=== PATIENT | male | born 1945 | race Caucasian/White ===

== ENCOUNTER → 2020-04-21 13:29 | Outpatient (BNVA) | payer MEDICARE, OTHER, SELFPAY | PROVIDERS: Family Provider Electrodiagnostic Medicine; PCP Electrodiagnostic Medicine; Visit Provider Specialist | DX: G62.9 Polyneuropathy, unspecified (principal) | CPT/HCPCS: 99212 ==

== ENCOUNTER 2021-03-25 06:47 | Outpatient (CLI) | payer MEDICARE, OTHER, SELFPAY ==
--- NOTE | 2021-03-25 06:55 | US_ITS ---
WS: [id number] ULTRASOUND ABDOMEN LIMITED CLINICAL INFORMATION: IDIOPATHIC ACUTE PANCREATITIS WITH UNINFECTED NECROSIS COMPARISON: None. FINDINGS: Liver Size: Normal. Craniocaudal length: 15.2 cm. Echogenicity: Normal. Surface nodularity: None. Mass (size and location): None. Bile ducts Intrahepatic ducts: Normal. Common bile duct diameter: 0.4 cm. Gallbladder Cholelithiasis /sludge balls in the gallbladder. Gallbladder is partially contracted. Gallstones: Present Gallbladder sludge: Present Gallbladder wall thickening: None. Pericholecystic fluid: None. Sonographic Lim sign: Absent. Pancreas Not well seen Right kidney: Normal. Hydronephrosis: None. Size: 10.0 cm x 4.1 cm x 4.9 cm. Abdominal aorta and IVC Visualized portions are normal. Ascites: None. US/US abdomen limited [id number] IMPRESSION: 1. Pancreas not well seen. 2. Cholelithiasis/sludge balls in the gallbladder. Normal common bile duct. No pericholecystic fluid. 3. No hydronephrosis in right kidney.
== END 2021-03-25 06:48 | disposition home or self-care (01) ==
PROVIDERS: PCP Electrodiagnostic Medicine; Visit Provider Electrodiagnostic Medicine
DX: K85.01 Idiopathic acute pancreatitis with uninfected necrosis (principal); R94.4 Abnormal results of kidney function studies; D69.6 Thrombocytopenia, unspecified
CPT/HCPCS: 76705

== ENCOUNTER 2021-07-21 12:10 | Outpatient (CLI) | payer MEDICARE, OTHER, SELFPAY ==
[2021-07-21 12:35] VITALS: BP 131/77; PULSE 66; RESP 18; TEMP 36.7; O2SAT 98; BMI 25.8
--- NOTE | 2021-07-21 12:57 | PC.NURSE ---
All assessments and interventions by Johanna and Migel/documented by DAJA Becerra
[2021-07-21 12:59] VITALS: BP 119/76; PULSE 68; RESP 18; TEMP 36.4; O2SAT 98
[2021-07-21 14:02] VITALS: BP 121/77; PULSE 67; RESP 18; TEMP 36.1; O2SAT 99
== END 2021-07-21 12:11 | disposition home or self-care (01) ==
LOC: OPS 12:14
PROVIDERS: PCP Electrodiagnostic Medicine; Visit Provider Electrodiagnostic Medicine
DX: U07.1 COVID-19 (principal)
CPT/HCPCS: 96365

== ENCOUNTER 2023-07-09 11:10 | Emergency (ER) | payer MEDICARE, OTHER, SELFPAY ==
--- NOTE | 2023-07-09 11:14 | XRR_ITS ---
PROCEDURE INFORMATION: Exam: XR Chest Exam date and time: 07/09/2023 11:28 AM Age: 77 years old Clinical indication: Other: Epigastric pain; Additional info: Cp TECHNIQUE: Imaging protocol: Radiologic exam of the chest. Views: 1 view. COMPARISON: No relevant prior studies available. FINDINGS: Lungs: Mild subsegmental atelectasis versus scarring in the left lung base. No consolidation. Pleural spaces: No pleural effusion or pneumothorax. Heart/Mediastinum: Unremarkable. No cardiomegaly. Vasculature: Aortic arch atherosclerotic calcification. Bones/joints: Degenerative changes along the spine and acromioclavicular joints. XR/XR chest 1V portable [id number] IMPRESSION: No acute findings.
--- NOTE | 2023-07-09 11:15 | ECG_ITS ---
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 Measurements Intervals [place] Rate: 82 P: 46 ME: 115 QRS: 0 QRSD: 86 T: 75 QT: 374 QTc: 439 Interpretive Statements SINUS RHYTHM WITH SHORT ME INTERVAL LOW QRS VOLTAGE IN PRECORDIAL LEADS [QRS DEFLECTION < 1.0 mV IN CHEST LEADS] No previous ECG available for comparison Electronically Signed On 07-09-2023 12:03:51 PREFITTER by Rom Ames M.D. [id number]
[2023-07-09 11:20] VITALS: BP 142/79; PULSE 81; RESP 18; TEMP 36.7; O2SAT 100; BMI 26.6
[2023-07-09 11:49] LABS: Basophils % 0.4 %; Eosinophils # 0.1 10^3/uL (0.0-0.8); Eosinophils % 0.6 %; Hematocrit 37.5 % (37-53); Mean Corpuscular HGB Conc 33.3 g/dL (30-55); Mean Corpuscular Hemoglobin 30.6 pg (27-33); Mean Corpuscular Volume 91.7 fl (82-101); Mean Platelet Volume 9.8 fL (7.4-10.4); Monocytes # 0.5 10^3/uL (0.2-0.9); Monocytes % 5.4 %; Neutrophils # 5.92 10^3/uL (1.8-7.7); Neutrophils % 62.2 %; Nucleated Red Blood Cells % 0 %; Platelet Count 208 10^3/cmm (157-399); Red Blood Count 4.09 10^6/uL (3.85-5.65); Red Cell Distribution Width 13.2 % (12.1-15.1); White Blood Count 9.52 10^3/uL (3.29-11.43)
[2023-07-09 12:09] LABS: Alanine Aminotransferase 66 U/L (0-41); Albumin Level 4.6 g/dL (3.5-5.2); Alkaline Phosphatase 102 U/L (40-130); Anion Gap 20.3 (5-19); Aspartate Amino Transferase 137 U/L (0-40); Blood Urea Nitrogen 21 mg/dL (8-23); Calcium 9.7 mg/dL (8.5-10.5); Carbon Dioxide 21 mmol/L (22-29); Chloride 104 mmol/L (98-107); Glucose 156 mg/dL (65-115); Lipase 6 U/L (13-60); Osmolality Calculated 296 mOsm/kg (285-295); Potassium 5.3 mmol/L (3.5-5.1); Sodium 140 mmol/L (136-145); Total Bilirubin 0.5 mg/dL (0.15-1.2); Total Protein 7.6 g/dL (6.6-8.7)
[2023-07-09 12:15] LABS: Troponin(5th) Baseline 38 ng/L (0-15)
--- NOTE | 2023-07-09 13:22 | W.ED.ABDPA2 ---
HPI - Abdominal Pain General: Chief Complaint: Abdominal Pain Stated Complaint: diaphram pain, sob, weakness Time Seen by Provider: 07/09/23 13:21 Source: patient Mode of arrival: ambulatory History of Present Illness: 77-year-old male presents emergency complaining epigastric pain radiating to his chest. It is much better than it was earlier he took 9 Tums to resolve it. He has had this intermittently in the past he had a history of pancreatitis in the past as well he denies drinking recently. Has nauseous but not vomited. MD elicited complaint: abdominal pain Onset (ago): hour(s) Location: Epigastric Severity: moderate Quality: sharp Radiation: chest Exacerbating factors: nothing Relieving factors: nothing Associated Symptoms: Reports GI cramping and dyspepsia; Denies anorexia, belching, bloating, change in bowel habits, change in stool character, chills, coffee ground emesis, constipation, diarrhea, dysuria, excessive flatus, fever(s), heartburn, hematochezia, hematuria, hematemesis, fecal incontinence, loose stools, melena, nausea, poor appetite, syncope and vomiting Review of Systems Const: Denies: fever(s) or chills Card: Denies: syncope Resp: Denies: dyspnea GI: Reports: GI cramping; Denies: nausea, vomiting, hematemesis, coffee ground emesis, heartburn, diarrhea, constipation, bloating, belching, excessive flatus, fecal incontinence, change in bowel habits, change in stool character, hematochezia or melena : Denies: dysuria or hematuria Musc: Denies: neck pain or back pain Skin/Breast: Denies: rash PFSH ED PFSH: Family History Other Cancer Social History Smoking and tobacco/nicotine status: never used tobacco/nicotine Physical Exam Const: COMMON NORMALS: no acute distress GENERAL APPEARANCE: cooperative and comfortable ORIENTATION/CONSCIOUSNESS: Yes awake, Yes oriented to person, Yes oriented to place and Yes oriented to time HENMT: COMMON NORMALS: normocephalic, atraumatic and hearing grossly normal bilaterally HEAD & SCALP: normocephalic and atraumatic Resp: COMMON NORMALS: normal respiratory effort, No retractions, No use of accessory muscles and clear to auscultation bilaterally AUSCULTATION: clear to auscultation bilaterally Cardio: COMMON NORMALS: regular rate, regular rhythm and No murmurs present (Cardio) RATE: regular rate RHYTHM: regular rhythm GI: COMMON NORMALS: Soft to palpation and No hepatosplenomegaly present AUSCULTATION: Yes normoactive bowel sounds PALPATION: Yes Soft to palpation, No Tenderness to palpation present (GI), No Guarding due to palpation present (GI) and Yes No hepatosplenomegaly present Extremity: COMMON NORMALS: normal to inspection, capillary refill normal, no clubbing, cyanosis or edema, no calf tenderness and no pedal edema Neuro: SENSORIUM/ORIENTATION: Yes oriented to person, Yes oriented to place and Yes oriented to time Skin: COMMON NORMALS: no rashes or lesions noted GENERAL SKIN EXAM: no rashes or lesions noted Course Vital Signs: Vital signs: Vital Signs Temperature 98.1 F 07/09/23 11:20 Pulse Rate 81 07/09/23 11:20 Respiratory Rate 18 07/09/23 11:20 Blood Pressure 142/79 07/09/23 11:20 Pulse Oximetry 100 07/09/23 11:20 Oxygen Delivery Me thod Room Air 07/09/23 11:20 MDM - Abdominal Pain Medical Decision Making Symptoms improved prior to coming here with these several times that he took improved even more with the GI cocktail cardiac enzymes negative EKG did not show any acute ST changes we will discharge patient home on pantoprazole 40 mg daily Carafate for breakthrough symptoms set up for an outpatient Lexiscan sestamibi stress test Medical Records I reviewed the patient's medical records. Lab Data I reviewed the patient's lab results. 07/09/23 11:41 07/09/23 11:41 Labs/Radiology: Radiology Impressions Chest X-Ray 07/09/23 11:14 IMPRESSION: No acute findings. Laboratory Results WBC 9.52 10^3/uL (3.29-11.43) 07/09/23 11:41 RBC 4.09 10^6/uL (3.85-5.65) 07/09/23 11:41 Hgb 12.50 g/dL (11.27-16.99) 07/09/23 11:41 Hct 37.5 % (37-53) 07/09/23 11:41 MCV 91.7 fl (82-101) 07/09/23 11:41 MCH 30.6 pg (27-33) 07/09/23 11:41 MCHC 33.3 g/dL (30-55) 07/09/23 11:41 RDW 13.2 % (12.1-15.1) 07/09/23 11:41 Plt Count 208 10^3/cmm (157-399) 07/09/23 11:41 MPV 9.8 fL (7.4-10.4) 07/09/23 11:41 Neut % (Auto) 62.2 % 07/09/23 11:41 Lymph % (Auto) 31.0 % 07/09/23 11:41 Mclean % (Auto) 5.4 % 07/09/23 11:41 Eos % (Auto) 0.6 % 07/09/23 11:41 Baso % (Auto) 0.4 % 07/09/23 11:41 Neut # (Auto) 5.92 10^3/uL (1.8-7.7) 07/09/23 11:41 Lymph # (Auto) 3.0 10^3/uL (0.8-4.8) 07/09/23 11:41 Mclean # (Auto) 0.5 10^3/uL (0.2-0.9) 07/09/23 11:41 Eos # (Auto) 0.1 10^3/uL (0.0-0.8) 07/09/23 11:41 Baso # (Auto) 0.0 10^3/uL (0.0-0.1) 07/09/23 11:41 Nucleated RBC % (auto) 0 % 07/09/23 11:41 Nucleated RBCs # 0.0 /100WBC 07/09/23 11:41 Sodium 140 mmol/L (136-145) 07/09/23 11:41 Potassium 5.3 mmol/L (3.5-5.1) H 07/09/23 11:41 Chloride 104 mmol/L (98-107) 07/09/23 11:41 Carbon Dioxide 21 mmol/L (22-29) L 07/09/23 11:41 Anion Gap 20.3 (5-19) H 07/09/23 11:41 BUN 21 mg/dL (8-23) 07/09/23 11:41 Creatinine 1.4 mg/dL (0.7-1.2) H 07/09/23 11:41 GFR Calculation Not Reportable 07/09/23 11:41 Glucose 156 mg/dL (65-115) H 07/09/23 11:41 Calculated Osmolality 296 mOsm/kg (285-295) H 07/09/23 11:41 Calcium 9.7 mg/dL (8.5-10.5) 07/09/23 11:41 Total Bilirubin 0.5 mg/dL (0.15-1.2) 07/09/23 11:41 AST 137 U/L (0-40) H 07/09/23 11:41 ALT 66 U/L (0-41) H 07/09/23 11:41 Alkaline Phosphatase 102 U/L (40-130) 07/09/23 11:41 Troponin T Baseline 38 ng/L (0-15) H 07/09/23 11:41 Troponin T 120 Minute 38.14 ng/L (0-15) H 07/09/23 13:50 Delta Troponin T 0.14 ABS# (0-10) 07/09/23 13:50 Total Protein 7.6 g/dL (6.6-8.7) 07/09/23 11:41 Albumin 4.6 g/dL (3.5-5.2) 07/09/23 11:41 Globulin 3.0 g/dL (1.3-4.6) 07/09/23 11:41 Lipase 6 U/L (13-60) L 07/09/23 11:41 All radiology interpretation(s) finalized by discharge Discharge Plan Discharge Patient Disposition: Home Clinical Impression: Atypical chest pain, GERD (gastroesophageal reflux disease) Condition: Stable Prescriptions: New pantoprazole 40 mg tablet,delayed release (DR/EC) 40 mg PO DAILY Qty: 30 0RF Carafate 1 gram tablet 1 g PO Q6H PRN (Reason: dyspepsia) 28 Days Qty: 112 0RF No Action diphenhydramine HCl [Benadryl] 25 mg capsule 25 mg PO DAILY finasteride 5 mg tablet 5 mg PO DAILY lorazepam 0.5 mg tablet 0.5 mg PO BID PRN tamsulosin 0.4 mg capsule 0.4 mg PO DAILY prednisolone 5 mg tablet 5 mg PO DAILY gabapentin 300 mg capsule 300 mg PO DAILY Qty: 180 3RF Discharge Orders: Discharge ED (Routine); Ordered 07/09/23 Ordered By: Arjun Buckley Referrals: Travon Marin, [Primary Care Provider] - Discharge Diet: Usual diet Discharge Activity: Limit activity as instructed Patient Instructions: Opioid Safety, Pain Management Activity Restrictions/Additional Instructions: Thank you for choosing [facility] for your healthcare needs today. Please realize this is an emergency room and that we are providing you with a medical screening exam and this may not be complete and all inclusive of all the testing and or work up that you may need to determine your ailment or severity of your illness. It is very important that you follow up as instructed or that you return to the Emergency Department should you have concerns or if your condition changes or worsens in any way. You are seen today for epigastric pain radiating to the chest suspect this is due to GI source such as reflux. Recommend short pantoprazole 40 mg daily Carafate as needed for breakthrough symptoms. To further evaluate heart as a potential cause will set you up for an outpatient stress test. Coding Level of Care Code ED Build Technician for Cherri Stein
--- NOTE | 2023-07-09 13:23 | ECG_ITS ---
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 Measurements Intervals [place] Rate: 60 P: 44 AR: 167 QRS: 8 QRSD: 80 T: 54 QT: 404 QTc: 406 Interpretive Statements SINUS RHYTHM LOW QRS VOLTAGE IN PRECORDIAL LEADS [QRS DEFLECTION < 1.0 mV IN CHEST LEADS] Compared to ECG 07/09/2023 11:16:33 ST (T wave) deviation now present Myocardial infarct finding now present Short AR interval no longer present Electronically Signed On 07-09-2023 13:43:43 TOSSER by Deyanira Medrano M.D. [id number]
[2023-07-09 14:26] LABS: Troponin 5 2HR 38.14 ng/L (0-15)
[2023-07-09 14:27] LABS: Troponin 5 2HR Delta 0.14 ABS# (0-10)
[2023-07-09] MEDS: lidocaine 2% viscous 15 ML, aluminum-mag hydrox-simethicon 30 ML, sucralfate oral liq 1 GM PO (15:06)
== END 2023-07-09 15:39 | disposition home or self-care (01) ==
PROVIDERS: Emergency Medicine; Emergency Provider Family Medicine; PCP Electrodiagnostic Medicine
DX: R07.89 Other chest pain (principal); K21.9 Gastro-esophageal reflux disease without esophagitis
CPT/HCPCS: 36415; 71045; 80053; 83690; 84484; 85025; 93005; 99285

== ENCOUNTER → 2023-12-24 14:50 | Outpatient (BNVA) | payer MEDICARE, SELFPAY | PROVIDERS: PCP Electrodiagnostic Medicine; Visit Provider Podiatrist Foot & Ankle Surgery | DX: Q82.8 Other specified congenital malformations of skin; G62.9 Polyneuropathy, unspecified | CPT/HCPCS: 17110; 99203 ==

== ENCOUNTER 2024-02-01 01:30 | Emergency (ER) | payer MEDICARE, SELFPAY ==
[2024-02-01 01:45] VITALS: BP 145/81; PULSE 78; RESP 14; TEMP 36.7; O2SAT 99
--- NOTE | 2024-02-01 02:01 | ED_ITS ---
HPI - Abdominal Pain 2 General: Chief Complaint: Abdominal Pain Stated Complaint: Diah Time Seen by Provider: 02/01/24 01:57 History of Present Illness: 78-year-old man who presents emergency r oom with diarrhea. He said he has been having this for several days now. Apparently had had a ruptured gallbladder and is on 3 different oral antibiotics at home right now. He has to be on antibiotics for some time before they will remove his gallbladder he says. He says he has been having occasional vomiting but has had copious diarrhea and started feeling weak and was worried that he was dehydrated. Review of Systems 2 Narrative: Constitutional symptoms: Negative except as documented in HPI. Skin symptoms: Negative except as documented in HPI. Eye symptoms: Negative except as documented in HPI. ENMT symptoms: Negative except as documented in HPI. Respiratory symptoms: Negative except as documented in HPI. Cardiovascular symptoms: Negative except as documented in HPI. Gastrointestinal symptoms: Negative except as documented in HPI. Genitourinary symptoms: Negative except as documented in HPI. Musculoskeletal symptoms: Negative except as documented in HPI. Neurologic symptoms: Negative except as documented in HPI. Psychiatric symptoms: Negative except as documented in HPI. Endocrine symptoms: Negative except as documented in HPI. PFSH ED 2 PFSH: Family History Other Cancer Social History Smoking and tobacco/nicotine status: never used tobacco/nicotine Physical Exam 2 Narrative: EXAM NARRATIVE: General: Alert, no acute distress. Skin: Warm, dry. Head: Normocephalic, atraumatic. Neck: Supple, trachea midline. Eye: Extraocular movements are intact. Ears, nose, mouth and throat: Tacky oral mucosa Cardiovascular: Regular, Normal peripheral perfusion. Respiratory: Lungs are clear to auscultation, respirations are non-labored, breath sounds are equal, Symmetrical chest wall expansion. Gastrointestinal: Soft, Nontender, Non distended, Normal bowel sounds. Musculoskeletal: Normal ROM, no deformity. Neurological: Alert and oriented, No focal neurological deficit observed. Psychiatric: Cooperative, appropriate mood & affect. Course 2 Vital Signs: Vital signs: Vital Signs Temperature 98.1 F 02/01/24 01:45 Pulse Rate 78 02/01/24 02:30 Respiratory Rate 16 02/01/24 02:30 Blood Pressure 138/80 02/01/24 02:30 Pulse Oximetry 100 02/01/24 02:30 Oxygen Delivery Me thod Room Air 02/01/24 02:30 MDM - Abdominal Pain Medical Decision Making Medical decision making: Differential diagnosis including but not limited to and based on the above HPI, review of systems and physical exam: With gallbladder issues and on multiple antibiotics patient likely has diarrhea secondary to this. Will be concern for renal failure and dehydration. So BMP and CBC were ordered. Also he had a high white count might worry about C. difficile. Orders placed to evaluate differential diagnosis based on the above differential, HPI and physical exam Lab Review: Laboratory results were reviewed and interpreted by myself the emergency room physician. Lab work is fairly unremarkable. White count is 8.5. His sodium is a bit low at 128 which would indicate some dehydration also BUN and creatinine are 18 and 1.3 which supports this. 2 L of fluid are being given I reviewed the patient's medical record. Reexamination: Patient remained stable. No altered mental status. No increased work of breathing. No focal motor deficits. Assessment and plan: Diarrhea Dehydration -IV Zofran and 2 L normal saline bolus. - Discharged home - Discussed plan with patient. Answered any questions. - Evaluation and treatment of this problem were appropriate in the emergency setting. Lab Data 02/01/24 02:00 02/01/24 02:00 Labs/Radiology: Laboratory Results WBC 8.50 10^3/uL (3.29-11.43) 02/01/24 02:00 RBC 3.72 10^6/uL (3.85-5.65) L 02/01/24 02:00 Hgb 11.00 g/dL (11.27-16.99) L 02/01/24 02:00 Hct 32.7 % (37-53) L 02/01/24 02:00 MCV 87.9 fl (82-101) 02/01/24 02:00 MCH 29.6 pg (27-33) 02/01/24 02:00 MCHC 33.6 g/dL (30-55) 02/01/24 02:00 RDW 14.3 % (12.1-15.1) 02/01/24 02:00 Plt Count 304 10^3/cmm (157-399) 02/01/24 02:00 MPV 9.3 fL (7.4-10.4) 02/01/24 02:00 Neut % (Auto) 58.5 % 02/01/24 02:00 Lymph % (Auto) 30.6 % 02/01/24 02:00 [place] % (Auto) 8.2 % 02/01/24 02:00 Eos % (Auto) 1.8 % 02/01/24 02:00 Baso % (Auto) 0.5 % 02/01/24 02:00 Neut # (Auto) 4.98 10^3/uL (1.8-7.7) 02/01/24 02:00 Lymph # (Auto) 2.6 10^3/uL (0.8-4.8) 02/01/24 02:00 [place] # (Auto) 0.7 10^3/uL (0.2-0.9) 02/01/24 02:00 Eos # (Auto) 0.2 10^3/uL (0.0-0.8) 02/01/24 02:00 Baso # (Auto) 0.0 10^3/uL (0.0-0.1) 02/01/24 02:00 Nucleated RBC % (auto) 0 % 02/01/24 02:00 Nucleated RBCs # 0.0 /100WBC 02/01/24 02:00 Sodium 128 mmol/L (136-145) L 02/01/24 02:00 Potassium 4.4 mmol/L (3.5-5.1) 02/01/24 02:00 Chloride 94 mmol/L (98-107) L 02/01/24 02:00 Carbon Dioxide 20 mmol/L (22-29) L 02/01/24 02:00 Anion Gap 18.4 (5-19) 02/01/24 02:00 BUN 18 mg/dL (8-23) 02/01/24 02:00 Creatinine 1.3 mg/dL (0.7-1.2) H 02/01/24 02:00 GFR Calculation Not Reportable 02/01/24 02:00 Glucose 108 mg/dL (65-115) 02/01/24 02:00 Calculated Osmolality 268 mOsm/kg (285-295) L 02/01/24 02:00 Lactic Acid 1.3 mmol/L (0.5-2.2) 02/01/24 02:00 Calcium 8.5 mg/dL (8.5-10.5) 02/01/24 02:00 Total Bilirubin 0.6 mg/dL (0.15-1.2) 02/01/24 02:00 AST 24 U/L (0-40) 02/01/24 02:00 ALT 18 U/L (0-41) 02/01/24 02:00 Alkaline Phosphatase 91 U/L (40-130) 02/01/24 02:00 C-Reactive Protein 5.8 mg/L (0.0-4.9) H 02/01/24 02:00 Total Protein 7.1 g/dL (6.6-8.7) 02/01/24 02:00 Albumin 3.8 g/dL (3.5-5.2) 02/01/24 02:00 Globulin 3.3 g/dL (1.3-4.6) 02/01/24 02:00 Lipase 5 U/L (13-60) L 02/01/24 02:00 No radiology studies performed this visit Discharge Plan Discharge Patient Disposition: Home Clinical Impression: Dehydration Diarrhea Qualifiers: Diarrhea type: unspecified type Qualified Code(s): R19.7 - Diarrhea, unspecified Condition: Stable Prescriptions: New ondansetron 8 mg tablet,disintegrating 8 mg PO .q6 PRN (Reason: nausea and vomiting) Qty: 14 0RF No Action diphenhydramine HCl [Benadryl] 25 mg capsule 25 mg PO DAILY finasteride 5 mg tablet 5 mg PO DAILY lorazepam 0.5 mg tablet 0.5 mg PO BID PRN tamsulosin 0.4 mg capsule 0.4 mg PO DAILY prednisolone 5 mg tablet 5 mg PO DAILY gabapentin 300 mg capsule 300 mg PO DAILY Qty: 180 3RF pantoprazole 40 mg tablet,delayed release (DR/EC) 40 mg PO DAILY Qty: 30 0RF Discharge Orders: Discharge ED (Routine); Ordered 02/01/24 Ordered By: Misti Reza Referrals: Travon Marin DO [Primary Care Provider] - 4-7 days Discharge Diet: Usual diet Discharge Activity: Resume usual activity Patient Instructions: Acute Diarrhea (ED) Activity Restrictions/Additional Instructions: Thank you for choosing [facility] for your healthcare needs today. Please realize this is an emergency room and that we are providing you with a medical screening exam and this may not be complete and all inclusive of all the testing and or work up that you may need to determine your ailment or severity of your illness. You have been screened and evaluated and felt safe for discharge. Health conditions do change or evolve sometimes and as such it is important that you follow up with your Primary Doctor to be re checked, 3-5 days is a general good time frame for follow up. You are always welcome to return to the ED for re assessment if your symptoms are worsening or you have new concerns Coding Level of Care Code ED Hide Puller for Cherri Stein
[2024-02-01 02:08] LABS: Basophils % 0.5 %; Eosinophils # 0.2 10^3/uL (0.0-0.8); Eosinophils % 1.8 %; Hematocrit 32.7 % (37-53); Lymphocytes # 2.6 10^3/uL (0.8-4.8); Lymphocytes % 30.6 %; Mean Corpuscular HGB Conc 33.6 g/dL (30-55); Mean Corpuscular Hemoglobin 29.6 pg (27-33); Mean Corpuscular Volume 87.9 fl (82-101); Mean Platelet Volume 9.3 fL (7.4-10.4); Monocytes # 0.7 10^3/uL (0.2-0.9); Monocytes % 8.2 %; Neutrophils # 4.98 10^3/uL (1.8-7.7); Neutrophils % 58.5 %; Nucleated Red Blood Cells % 0 %; Platelet Count 304 10^3/cmm (157-399); Red Blood Count 3.72 10^6/uL (3.85-5.65); Red Cell Distribution Width 14.3 % (12.1-15.1)
[2024-02-01] MEDS: sodium chloride 0.9% 1,000 ML 999 ML IV ×2 (02:13→02:54)
[2024-02-01 02:28] LABS: Alanine Aminotransferase 18 U/L (0-41); Albumin Level 3.8 g/dL (3.5-5.2); Alkaline Phosphatase 91 U/L (40-130); Anion Gap 18.4 (5-19); Aspartate Amino Transferase 24 U/L (0-40); Blood Urea Nitrogen 18 mg/dL (8-23); C Reactive Protein 5.8 mg/L (0.0-4.9); Calcium 8.5 mg/dL (8.5-10.5); Carbon Dioxide 20 mmol/L (22-29); Chloride 94 mmol/L (98-107); Globulin 3.3 g/dL (1.3-4.6); Glucose 108 mg/dL (65-115); Lipase 5 U/L (13-60); Osmolality Calculated 268 mOsm/kg (285-295); Potassium 4.4 mmol/L (3.5-5.1); Sodium 128 mmol/L (136-145); Total Bilirubin 0.6 mg/dL (0.15-1.2); Total Protein 7.1 g/dL (6.6-8.7)
[2024-02-01 02:30] VITALS: BP 138/80; PULSE 78; RESP 16; O2SAT 100
[2024-02-01 02:31] LABS: Creatinine Clr Calc Pharmacy 51.9562; Lactic Sepsis W/Reflex 1.3 mmol/L (0.5-2.2)
--- NOTE | 2024-02-01 02:51 | XRR_ITS ---
PROCEDURE INFORMATION: Exam: XR Chest Exam date and time: 02/01/2024 2:59 AM Age: 78 years old Clinical indication: Angina; Additional info: Chest pain TECHNIQUE: Imaging protocol: Radiologic exam of the chest. Views: 1 view. COMPARISON: CR XR chest 1V portable [id number] 07/09/2023 11:28 AM FINDINGS: Lungs: Unremarkable. No consolidation. Pleural spaces: Unremarkable. No pleural effusion. No pneumothorax. Heart/Mediastinum: Unremarkable. No cardiomegaly. Bones/joints: Unremarkable. XR/XR chest 1V portable [id number] IMPRESSION: No acute cardiopulmonary findings.
[2024-02-01 03:32] VITALS: BP 133/73; PULSE 77; RESP 17; O2SAT 100
== END 2024-02-01 03:33 | disposition home or self-care (01) ==
PROVIDERS: Emergency Provider Emergency Medicine; PCP Electrodiagnostic Medicine
DX: R19.7 Diarrhea, unspecified (principal); E86.0 Dehydration
CPT/HCPCS: 36415; 71045; 80053; 83605; 83690; 85025; 86140; 96360; 99284; J7030

== ENCOUNTER 2024-08-20 14:09 | Outpatient (CLI) | payer MEDICARE, SELFPAY ==
--- NOTE | 2024-08-20 14:16 | CT_ITS ---
WS: [id number] CT scan of the abdomen and pelvis without Oral and IV contrast. Additional two-dimensional coronal an d sagittal reconstruction was performed. 08/20/2024 Clinical Data: ABDOMINAL PAIN Comparison: None. DLP: 369.[address] scans at [facility] use at least one of these dose optimization techniques: automated e xposure control; mA and/or kV adjustment per patient size (includes targeted exams where dose is matc hed to clinical indication); or iterative reconstruction. Findings: The lower lungs show no nodules, masses or effusions. The liver, spleen, adrenal glands and pancreas are normal. There are cholecystectomy clips in the gal lbladder fossa. The kidneys show no cyst or masses. There is no hydronephrosis or hydroureter. No renal or ureteral calculi are seen. The abdominal aorta is normal in size with calcification in the wall.. No appendicitis or diverticulitis is seen. The stomach, small bowel and colon show no acute abnormali ties. There are numerous colonic diverticula. The bladder is unremarkable. The prostate is enlarged. No inguinal hernia is seen. The bones of the lower thorax, lumbar spine, pelvis, and hips are normal. CT/CT abdomen pelvis con [id number] Impression: Negative CT scan of the abdomen and pelvis.
== END 2024-08-20 14:10 | disposition home or self-care (01) ==
LOC: RAD 14:11
PROVIDERS: PCP Electrodiagnostic Medicine; Visit Provider Electrodiagnostic Medicine
DX: K57.90 Diverticulosis of intestine, part unspecified, without perforation or abscess without bleeding (principal); N40.0 Benign prostatic hyperplasia without lower urinary tract symptoms; R10.9 Unspecified abdominal pain; Z90.49 Acquired absence of other specified parts of digestive tract
CPT/HCPCS: 74176

== ENCOUNTER 2024-11-28 13:56 | Emergency (ER) | payer MEDICARE, SELFPAY ==
[2024-11-28 14:17] VITALS: BP 131/75; PULSE 76; RESP 18; TEMP 36.6; O2SAT 100; BMI 26.6
--- NOTE | 2024-11-28 14:57 | W.ED.ABDPA2 ---
HPI - Abdominal Pain General: Chief Complaint: Abdominal Pain Stated Complaint: low abd pain Time Seen by Provider: 11/28/24 14:53 History of Present Illness: 78-year-old male presents to the emergency room with complaints of abdominal pain. Patient states he has had longstanding difficulty with his pancreas this pain began in September over the last week it has gotten worse. In April of last year he had a cholecystectomy complicated by infection. He denies any medic easy melena hematemesis coffee-ground emesis no fever no vomiting or diarrhea he has been very nauseous severe abdominal pain radiating into his back. Associated Symptoms: Reports nausea; Denies chills, constipation, diarrhea, dysuria, fever(s) and vomiting Related Data Home Medications ?Medication ?Instructions ?Recorded ?Confirmed diphenhydramine HCl 25 mg capsule 25 mg PO DAILY 04/21/20 12/24/23 (Benadryl) finasteride 5 mg tablet 5 mg PO DAILY 04/21/20 12/24/23 lorazepam 0.5 mg tablet 0.5 mg PO BID PRN 04/21/20 12/24/23 prednisolone 5 mg tablet 5 mg PO DAILY 04/21/20 12/24/23 tamsulosin 0.4 mg capsule 0.4 mg PO DAILY 04/21/20 12/24/23 Previous Rx's ?Medication ?Instructions ?Recorded gabapentin 300 mg capsule 300 mg PO DAILY #180 caps 04/21/20 pantoprazole 40 mg tablet,delayed 40 mg PO DAILY #30 tabs 07/09/23 release ondansetron 8 mg disintegrating 8 mg PO .q6 PRN nausea and 02/01/24 tablet vomiting #14 tabs Allergies Allergy/AdvReac Type Severity Reaction Status Date / Time No Known Allergies Allergy Verified 11/28/24 14:24 Review of Systems Const: Denies: fever(s) or chills Card: Denies: chest pain Resp: Denies: dyspnea GI: Reports: abdominal pain and nausea; Denies: vomiting, diarrhea or constipation : Denies: dysuria, urinary frequency or urinary urgency Musc: Denies: neck pain or back pain Skin/Breast: Denies: rash PFSH ED PFSH: Family History Other Cancer Social History (Reviewed 03/28/25 @ 15:08 by JOYCE Palacios Smoking and tobacco/nicotine status: never used tobacco/nicotine Physical Exam Const: GENERAL APPEARANCE: cooperative ORIENTATION/CONSCIOUSNESS: Yes awake, Yes oriented to person, Yes oriented to place and Yes oriented to time HENMT: COMMON NORMALS: normocephalic, atraumatic and hearing grossly normal bilaterally HEAD & SCALP: normocephalic and atraumatic Resp: COMMON NORMALS: normal respiratory effort, No retractions, No use of accessory muscles and clear to auscultation bilaterally AUSCULTATION: clear to auscultation bilaterally Cardio: COMMON NORMALS: regular rate, regular rhythm and No murmurs present (Cardio) RATE: regular rate RHYTHM: regular rhythm GI: COMMON NORMALS: Soft to palpation and No hepatosplenomegaly present AUSCULTATION: Yes normoactive bowel sounds PALPATION: Yes Soft to palpation, No Tenderness to palpation present (GI), No Guarding due to palpation present (GI) and Yes No hepatosplenomegaly present Extremity: COMMON NORMALS: normal to inspection, capillary refill normal, no clubbing, cyanosis or edema, no calf tenderness and no pedal edema Neuro: SENSORIUM/ORIENTATION: Yes oriented to person, Yes oriented to place and Yes oriented to time Skin: COMMON NORMALS: no rashes or lesions noted GENERAL SKIN EXAM: no rashes or lesions noted Course Vital Signs: Vital signs: Vital Signs Temperature 97.9 F 11/28/24 14:17 Pulse Rate 67 11/28/24 16:58 Respiratory Rate 18 11/28/24 14:17 Blood Pressure 137/77 11/28/24 16:58 Pulse Oximetry 97 11/28/24 16:58 Oxygen Delivery Me thod Room Air 11/28/24 16:30 MDM - Abdominal Pain Medical Decision Making No significant finding on exam noted on CT. Patient has been taking omeprazole as needed increase to twice daily for 10 days then daily Immucell Carafate or Tums in between follow-up with primary care. Lipase normal CT did not show any signs of abnormal swelling or inflammation around the pancreas Lab Data 11/28/24 15:18 11/28/24 15:18 Labs/Radiology: Radiology Impressions Abdomen/Pelvis CT 11/28/24 15:06 IMPRESSION: 1. No acute findings. 2. Prostate enlargement with chronic bladder wall thickening 3. Colonic diverticulosis Laboratory Results WBC 7.02 10^3/uL (3.29-11.43) 11/28/24 15:18 RBC 3.80 10^6/uL (3.85-5.65) L 11/28/24 15:18 Hgb 11.40 g/dL (11.27-16.99) 11/28/24 15:18 Hct 34.6 % (37-53) L 11/28/24 15:18 MCV 91.1 fl (82-101) 11/28/24 15:18 MCH 30.0 pg (27-33) 11/28/24 15:18 MCHC 32.9 g/dL (30-55) 11/28/24 15:18 RDW 13.2 % (12.1-15.1) 11/28/24 15:18 Plt Count 258 10^3/cmm (157-399) 11/28/24 15:18 MPV 9.5 fL (7.4-10.4) 11/28/24 15:18 Neut % (Auto) 40.5 % 11/28/24 15:18 Lymph % (Auto) 39.9 % 11/28/24 15:18 [place] % (Auto) 3.8 % 11/28/24 15:18 Eos % (Auto) 15.2 % 11/28/24 15:18 Baso % (Auto) 0.3 % 11/28/24 15:18 Neut # (Auto) 2.84 10^3/uL (1.8-7.7) 11/28/24 15:18 Lymph # (Auto) 2.8 10^3/uL (0.8-4.8) 11/28/24 15:18 [place] # (Auto) 0.3 10^3/uL (0.2-0.9) 11/28/24 15:18 Eos # (Auto) 1.1 10^3/uL (0.0-0.8) H 11/28/24 15:18 Baso # (Auto) 0.0 10^3/uL (0.0-0.1) 11/28/24 15:18 Nucleated RBC % (auto) 0 % 11/28/24 15:18 Nucleated RBCs # 0.0 /100WBC 11/28/24 15:18 Sodium 129 mmol/L (136-145) L 11/28/24 15:18 Potassium 4.4 mmol/L (3.5-5.1) 11/28/24 15:18 Chloride 99 mmol/L (98-107) 11/28/24 15:18 Carbon Dioxide 19 mmol/L (22-29) L 11/28/24 15:18 Anion Gap 15.4 (5-19) 11/28/24 15:18 BUN 16 mg/dL (8-23) 11/28/24 15:18 Creatinine 1.5 mg/dL (0.7-1.2) H 11/28/24 15:18 GFR Calculation Not Reportable 11/28/24 15:18 Glucose 89 mg/dL (65-115) 11/28/24 15:18 Calculated Osmolality 269 mOsm/kg (285-295) L 11/28/24 15:18 Calcium 8.1 mg/dL (8.5-10.5) L 11/28/24 15:18 Total Bilirubin 0.3 mg/dL (0.15-1.2) 11/28/24 15:18 AST 14 U/L (0-40) 11/28/24 15:18 ALT 11 U/L (0-41) 11/28/24 15:18 Alkaline Phosphatase 146 U/L (40-130) H 11/28/24 15:18 Total Protein 6.5 g/dL (6.6-8.7) L 11/28/24 15:18 Albumin 3.5 g/dL (3.5-5.2) 11/28/24 15:18 Globulin 3.0 g/dL (1.3-4.6) 11/28/24 15:18 Lipase 4 U/L (13-60) L 11/28/24 15:18 Urine Color Yellow (Yellow) 11/28/24 16:00 Urine Appearance Clear (CLEAR) 11/28/24 16:00 Urine pH 5 (5-7) 11/28/24 16:00 Ur Specific [place] 1.010 (1.005-1.030) 11/28/24 16:00 Urine Protein Neg (Negative) 11/28/24 16:00 Urine Glucose (UA) Norm (Normal) 11/28/24 16:00 Urine Ketones Negative (Negative) 11/28/24 16:00 Urine Blood Neg (Negative) 11/28/24 16:00 Urine Nitrate Negative (Negative) 11/28/24 16:00 Urine Bilirubin Neg (Negative) 11/28/24 16:00 Urine Urobilinogen Neg mg/dL (Negative) 11/28/24 16:00 Ur Leukocyte Esterase Negative (Negative) 11/28/24 16:00 Urine RBC 0-2 /hpf (0-2) 11/28/24 16:00 Urine WBC 0-5 /hpf (0-5) 11/28/24 16:00 Ur Squamous Epith Cells 0-5 /hpf (0-5) 11/28/24 16:00 Amorphous Sediment Not Reportable 11/28/24 16:00 Urine Bacteria None seen /hpf (NONE) 11/28/24 16:00 Hyaline Casts 0-4 /lpf H 11/28/24 16:00 All radiology interpretation(s) finalized by discharge Discharge Plan Discharge Patient Disposition: Home Clinical Impression: Gastroesophageal reflux disease Condition: Stable Prescriptions: No Action diphenhydramine HCl [Benadryl] 25 mg capsule 25 mg PO DAILY finasteride 5 mg tablet 5 mg PO DAILY lorazepam 0.5 mg tablet 0.5 mg PO BID PRN tamsulosin 0.4 mg capsule 0.4 mg PO DAILY prednisolone 5 mg tablet 5 mg PO DAILY gabapentin 300 mg capsule 300 mg PO DAILY Qty: 180 3RF ondansetron 8 mg tablet,disintegrating 8 mg PO .q6 PRN (Reason: nausea and vomiting) Qty: 14 0RF pantoprazole 40 mg tablet,delayed release (DR/EC) 40 mg PO DAILY Qty: 30 0RF Discharge Orders: Discharge ED (Routine); Ordered 11/28/24 Ordered By: Arjun Buckley Referrals: Travon Marin DO [Primary Care Provider] - Discharge Diet: As Directed Discharge Activity: Increase activity as tolerated Patient Instructions: Diet for Stomach Ulcers and Gastritis (ED), GERD (Gastroesophageal Reflux Disease) (ED), Opioid Safety, Pain Management Activity Restrictions/Additional Instructions: Thank you for choosing [facility] for your healthcare needs today. It is very important that you follow up as instructed or that you return to the Emergency Department should you have concerns or if your condition changes or worsens in any way. You are seen in the emergency room with complaint of abdominal discomfort. You are no elevation of your white count. Your the labs did not show any clinically significant abnormalities. Your lipase (pancreas enzyme was normal. CT of your abdomen did not show any acute disease. Recommend you take your omeprazole 20 to 40 mg 1 pill twice a day for 10 days then decrease to once daily. You can use either Tums or sulcrafate as needed in between. At the time you were seen in the ER pantoprazole was listed on your medicine list. You can take either pantoprazole or omeprazole they are equivalent medications. Recommend you follow-up with your primary care doctor within the next week. 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
--- NOTE | 2024-11-28 15:06 | CTR_ITS ---
PROCEDURE INFORMATION: Exam: CT Abdomen And Pelvis With Contrast Exam date and time: 11/28/2024 4:01 PM Age: 78 years old Clinical indication: Abdominal pain; Prior surgery; Surgery date: 6+ months; Surgery type: Gb; PT here via pov with C/O abd pain that started in sep 2024. PT states pain radiates into back. PT reports removal of gallbladder April 2024. TECHNIQUE: Imaging protocol: Computed tomography of the abdomen and pelvis with contrast. Radiation optimization: All CT scans at this facility use at least one of these dose optimization techniques: automated exposure control; mA and/or kV adjustment per patient size (includes targeted exams where dose is matched to clinical indication); or iterative reconstruction. Contrast material: OMNI 350; Contrast volume: 100 ml; Contrast route: INTRAVENOUS (IV); COMPARISON: CT abdomen pelvis wo con [id number] 08/20/2024 2:33 PM RADIATION DOSE METRICS: Total DLP (mGy-cm): 646.75 FINDINGS: Lungs: Lung bases are clear. No pleural effusion. Liver: Normal. No mass. Gallbladder and biliary ducts: The gallbladder has been resected. Pancreas: Normal. No ductal dilation. Spleen: Normal. No splenomegaly. Adrenal glands: Normal. No mass. Kidneys and ureters: Normal. No hydronephrosis. Stomach and bowel: There are multiple scattered diverticula throughout much of the colon. Appendix: No evidence of appendicitis. Intraperitoneal space: Unremarkable. No free air. No significant fluid collection. Vasculature: Unremarkable. No abdominal aortic aneurysm. Lymph nodes: Unremarkable. No enlarged lymph nodes. Urinary bladder: There is chronic bladder wall thickening and trabeculation. Reproductive: The prostate gland is abnormally enlarged. Bones/joints: Unremarkable. No acute fracture. Soft tissues: Unremarkable. CT/CT abdomen pelvis w con* [id number] IMPRESSION: 1. No acute findings. 2. Prostate enlargement with chronic bladder wall thickening 3. Colonic diverticulosis
[2024-11-28 15:30] VITALS: BP 142/72; PULSE 67; O2SAT 96
[2024-11-28 15:39] LABS: Basophils % 0.3 %; Eosinophils # 1.1 10^3/uL (0.0-0.8); Eosinophils % 15.2 %; Hematocrit 34.6 % (37-53); Lymphocytes # 2.8 10^3/uL (0.8-4.8); Lymphocytes % 39.9 %; Mean Corpuscular HGB Conc 32.9 g/dL (30-55); Mean Corpuscular Volume 91.1 fl (82-101); Mean Platelet Volume 9.5 fL (7.4-10.4); Monocytes # 0.3 10^3/uL (0.2-0.9); Monocytes % 3.8 %; Neutrophils # 2.84 10^3/uL (1.8-7.7); Neutrophils % 40.5 %; Nucleated Red Blood Cells % 0 %; Platelet Count 258 10^3/cmm (157-399); Red Cell Distribution Width 13.2 % (12.1-15.1); White Blood Count 7.02 10^3/uL (3.29-11.43)
[2024-11-28 15:52] LABS: Alanine Aminotransferase 11 U/L (0-41); Albumin Level 3.5 g/dL (3.5-5.2); Alkaline Phosphatase 146 U/L (40-130); Anion Gap 15.4 (5-19); Aspartate Amino Transferase 14 U/L (0-40); Blood Urea Nitrogen 16 mg/dL (8-23); Calcium 8.1 mg/dL (8.5-10.5); Carbon Dioxide 19 mmol/L (22-29); Chloride 99 mmol/L (98-107); Glucose 89 mg/dL (65-115); Lipase 4 U/L (13-60); Osmolality Calculated 269 mOsm/kg (285-295); Potassium 4.4 mmol/L (3.5-5.1); Sodium 129 mmol/L (136-145); Total Bilirubin 0.3 mg/dL (0.15-1.2); Total Protein 6.5 g/dL (6.6-8.7)
[2024-11-28] MEDS: iohexol 350 mg/mL 500 mL Btl (per mL) IV (16:05)
[2024-11-28 16:28] LABS: Bacteria Urine None Seen /hpf; Hyaline Casts Urine 0-4 /lpf; RBC Urine 0-2 /hpf (0-2); Squamous Epithelial Cell Urine 0-5 /hpf (0-5); WBC Urine 0-5 /hpf (0-5)
[2024-11-28 16:30] VITALS: BP 136/73; PULSE 69; O2SAT 95
[2024-11-28 16:31] LABS: Add Urine Microscopic? YES; Blood Urine Neg (Negative); Glucose Urine UA Norm (Normal); Ketones Urine Negative (Negative); Nitrate Urine Negative (Negative); Protein Urine Neg (Negative); Urine Appearance Clear (CLEAR); Urine Color Yellow (Yellow); pH Urine 5 (5-7)
[2024-11-28 16:32] LABS: Bilirubin Urine Neg (Negative); Leukocyte Esterase Urine Negative (Negative); Urobilinogen Urine Neg (Negative)
[2024-11-28 16:58] VITALS: BP 137/77; PULSE 67; O2SAT 97
== END 2024-11-28 17:04 | disposition home or self-care (01) ==
PROVIDERS: Physician Assistant; Emergency Provider Family Medicine; PCP Electrodiagnostic Medicine
DX: K21.9 Gastro-esophageal reflux disease without esophagitis (principal)
CPT/HCPCS: 36415; 74177; 80053; 81001; 83690; 85025; 99285

== ENCOUNTER 2024-12-22 14:56 | Outpatient (CLI) | payer MEDICARE, SELFPAY ==
--- NOTE | 2024-12-22 15:05 | MR_ITS ---
WS: [id number] MRI/MRCP OF THE ABDOMEN WITHOUT GADOLINIUM ENHANCEMENT TECHNIQUE: Coronal T2 Fase BH, Axial T2 Fase BH, Axial T2 FS BH, Zxial 3D Gonzalez BH, Axial DWI BH, 2D MRCP Radial BH, 3D MRCP (Resp), and Axial 3D Dyn BH Post sequences. CLINICAL INFORMATION: CHRONIC PANCREATITIS COMPARISON: CT 11/28/2024 FINDINGS: Fatty liver. Prior cholecystectomy. Portal vein and splenic vein are patent. A few tiny incidental hepatic cysts. Moderate esophageal hiatal hernia. Adrenal glands are normal. Bilateral renal cortical atrophy. Advanced fatty atrophy of the pancreas. Normal visualized common bile duct. Adrenal glands are normal. No intra or extrahepatic biliary ductal dilatation. No other acute findings. MR/MR MRCP [id number] Impression: Some images are limited by respiratory motion artifact 1. Prior cholecystectomy. 2. Advanced fatty atrophy of the pancreas. No pancreatic mass visualized. 3. Common bile duct appears patent considering motion artifact. No intrahepati c biliary ductal dilatation. 4. A few hepatic cysts. 5. Moderate esophageal hiatal hernia.
[2024-12-22] MEDS: gadobenate dimeglumine 20 mL vial 17 ML IV (15:49)
== END 2024-12-22 14:57 | disposition home or self-care (01) ==
LOC: RAD 15:02
PROVIDERS: PCP Electrodiagnostic Medicine; Visit Provider Electrodiagnostic Medicine
DX: K86.1 Other chronic pancreatitis (principal); Z90.49 Acquired absence of other specified parts of digestive tract; K86.89 Other specified diseases of pancreas; K76.89 Other specified diseases of liver; K44.9 Diaphragmatic hernia without obstruction or gangrene; K76.0 Fatty (change of) liver, not elsewhere classified; N26.1 Atrophy of kidney (terminal)
CPT/HCPCS: 74181